=== PATIENT | female | born 1980 | race Caucasian/White ===

== ENCOUNTER 2017-08-12 09:41 | Emergency (ER) | payer OTHER ==
[2017-08-12 09:49] VITALS: RESP 16
--- NOTE | 2017-08-12 12:29 | EDPHY ---
H & P Smoking Status: Never smoked Time Seen by Provider: 08/12/17 10:53 HPI/ROS: CHIEF COMPLAINT: Right calf pain HISTORY OF PRESENT ILLNESS: 37-year-old female presents to the emergency department with right calf pain and swelling. She states that she woke up this morning with pain and swelling to the medial, proximal aspect of her right calf. She denies pain associated with this. She states that it was more significantly swollen this morning and has improved although not resolved. Denies any other reported trauma. She does have a history of varicose veins. No recent travel. No chest pain or difficulty breathing. Specifically denies pleuritic chest pain. REVIEW OF SYSTEMS: Constitutional: No fever, no chills. Eyes: No double or blurry vision. ENT: No sore throat. Respiratory: No cough, no shortness of breath. Cardiac: No chest pain. Gastrointestinal: No abdominal pain, vomiting or diarrhea. Genitourinary: No dysuria. Musculoskeletal: No neck or back pain. Skin: No rashes. Neurological: No headache. (Sandrita Abraham) Past Medical/Surgical History: GERD (Sandrita Abraham) Social History: (Sandrita Abraham) Physical Exam: General Appearance: Alert, no distress. Vital signs are stable. Eyes: Pupils equal and round. Extraocular motions are all intact. ENT: Mouth: Mucous membranes moist. Respiratory: No wheezing, rhonchi, or rales, lungs are clear to auscultation. Cardiovascular: Regular rate and rhythm. Gastrointestinal: Abdomen is soft and nontender, no masses, no rebound or guarding, bowel sounds normal. Neurological: Alert and oriented x 3, cranial nerves II through XII grossly intact Skin: Warm and dry, no rashes. Musculoskeletal: Nontender to palpate along the cervical, thoracic or lumbar spine. Neck is supple. Extremities: Full range of motion of upper lower extremities. Patient has a palpable lump to the proximal medial aspect of the right lower leg just distal to her knee. Minimally tender to palpate. No fluctuance. No redness. No lymphangitis. Psychiatric: Patient is oriented X 3, there is no agitation. (Sandrita Abraham) Constitutional: Initial Vital Signs Temperature (C) 36.5 C 08/12/17 09:45 Heart Rate 80 08/12/17 09:45 Respiratory Rate 16 08/12/17 09:45 Blood Pressure 134/84 H 08/12/17 09:45 O2 Sat (%) 98 08/12/17 09:45 O2 Delivery Mode Room Air Allergies/Adverse Reactions: No Known Allergies Allergy (Unverified 08/12/17 09:49) Home Medications: Medication Instructions Recorded Prilosec 08/12/17 Medical Decision Making - Diagnostics Imaging: Discussed imaging studies w/ orthopedically impaired teacher Radiologist ED Course/Re-evaluation: 37-year-old female presents to the emergency department with palpable swollen lump to the right lower leg. Concerned about possible DVT. Doppler ultrasound reveals evidence of a ruptured Crawford cyst measuring 3.7 cm. No evidence of DVT. Patient was given orthopedic referral. She will return if she has any increased swelling or any other concerns. (Sandrita Abraham) I did not see this patient while she was in the emergency department. However her care was discussed with the PA while the patient was in the department. I agree with treatment plan and management (Buddy Murcia) Differential Diagnosis: Including but not limited to varicose vein, cellulitis, DVT, superficial thrombophlebitis, ruptured Crawford cyst (Sandrita Abraham) Departure - Departure Disposition: Home, Routine, Self-Care Clinical Impression: Crawford's cyst, ruptured Condition: Good Instructions: Bakers Cyst (ED) Additional Instructions: You have evidence of a ruptured Crawford's cyst on ultrasound today. Please follow up with orthopedic surgery next week to recheck. Return to the emergency department if you develop increasing pain or swelling, or if you feel worse in any way. Referrals: Jared Manzo MD [Medical Doctor] - 2-3 days without fail (Orthopedic surgeon on-call)
[2017-08-12 13:03] VITALS: BP 120/90; PULSE 86; TEMP 96.8; O2SAT 99
== END 2017-08-12 13:01 | disposition home or self-care (01) ==
DX: M66.0 Rupture of popliteal cyst (principal)